=== PATIENT | female | born 1965 | race Caucasian/White ===

== ENCOUNTER 2018-06-15 18:19 | Emergency (ER) | payer OTHER ==
[2018-06-15 18:35] VITALS: BP 151/88
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
== END 2018-06-15 18:59 | disposition home or self-care (01) ==
LOC: UCCORT 18:19
DX: T22.131A Burn of first degree of right upper arm, initial encounter (principal); T31.0 Burns involving less than 10% of body surface; X13.1XXA Other contact with steam and other hot vapors, initial encounter; Y93.9 Activity, unspecified; Y92.9 Unspecified place or not applicable; Z88.5 Allergy status to narcotic agent; Z88.4 Allergy status to anesthetic agent
CPT/HCPCS: 16025; 99211; G0463

== ENCOUNTER 2019-12-22 17:48 | Emergency (ER) | payer OTHER ==
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
--- OUTSIDE RECORDS SUMMARY | 2019-12-22 19:21 | XMS REPORT ---
:1965 Author Organization [facility] Address [address] [place] [address] Care Team Providers Name Role Phone Shani Bowles Unavailable Unavailable PROBLEMS Type Condition ICD9-CM [id number] Onset Condition SNOMED Code Code Code Dates Status Problem Body mass index Z68.38 Active 288858278733897 (BMI) 38.0-38.9, adult Problem Other specified N92.5 Active 31965990 irregular menstruation Problem Family history Z80.49 Active 809783305 of malignant neoplasm of other genital organs ALLERGIES Substance Reaction Event Type Date Status adhesive tape rash Non Drug Allergy Aug, Active titanium itching and didn't heal Non Drug Allergy Aug, Active local anesthetic for knee itchy Non Drug Allergy Aug, Active surgery ENCOUNTERS Encounter Location Date Diagnosis [facility] [address], [place] [id number] [facility] [address], [place] [id number] [facility] [address] [place] [id number] (general) (routine) without abnormal findings Z01.419 ; Family history of malignant neoplasm of breast Z80.3 ; Other specified irregular menstruation N92.5 ; Encounter for screening mammogram for malignant neoplasm of breast Z12.31 ; Family history of malignant neoplasm of other genital organs Z80.49 ; Encounter for screening for malignant neoplasm of colon Z12.11 and Body mass index (BMI) 38.0-38.9, adult Z68.38 [facility] [address], Other specified irregular OBGYN [facility], menstruation N92.5 and [place] [id number] Family history of malignant neoplasm of other genital organs Z80.49 [facility] [address] Aug[facility] [place] [id number] (general) (routine) without abnormal findings Z01.419 ; Other specified irregular menstruation N92.5 ; Family history of malignant neoplasm of other genital organs Z80.49 and Body mass index (BMI) 38.0-38.9, adult Z68.38 [facility] [address], Encounter for [facility] gynecological examination [place] [id number] (general) (routine) with abnormal findings Z01.411 ; Encounter for screening mammogram for malignant neoplasm of breast Z12.31 ; Encounter for screening for malignant neoplasm of colon Z12.11 and Family history of malignant neoplasm of breast Z80.3 [facility] [address] Aug[facility] [place] [id number] (general) (routine) without abnormal findings Z01.419 ; Encounter for screening for malignant neoplasm of cervix Z12.4 and Encounter for screening mammogram for malignant neoplasm of breast Z12.31 [facility] [address], Incontinence 788.30 OBGYN [place], [place] [id number] IMMUNIZATIONS No Known Immunizations SOCIAL HISTORY Never Assessed REASON FOR REFERRAL FUNCTIONAL STATUS PLAN OF CARE Activity Details Follow Up Schedule 1 year annual w/US Reason: Pending Test SCREENING MAMMOGRAM BILATERAL VITAL SIGNS Height 66.5 in 2019-09-08 Weight 232 lbs 2019-09-08 BMI 36.88 kg/m2 2019-09-08 Blood pressure systolic 120 mm Hg 2019-09-08 Blood pressure diastolic 96 mm Hg 2019-09-08 MEDICATIONS Medication Instructions Dosage Frequency Start End Date Duration Status Date oxycodone 5 mg orally every 6 1 tab(s) 6h Active hours nutritional Active supplements baby asa 81mg 1 24h Active PROCEDURES Procedure Date Ordered Result Body Site ASSAY TEST FOR BLOOD, FECAL Sep 08, 2019 RESULTS Name Result Date Reference Range OCCULT BLOOD SCREEN 1-3 Occult Blood Screen 1-3 REASON FOR VISIT Annual, US F/U Insurance Providers [facility] Health Member Patient Patient Patient Patient Patient Subscriber Subscriber Subscriber Group Insurance Plan Plan Plan Plan ID Relationship Address Phone Name Date of ID Name Date of No Type Insurance Insurance Insurance Coverage to Subscriber Address Phone Name Dates [employer] [phone] [employer] self Nmio [id number] [place] [address] Lifetime [phone] Lifetime self Nimo [id number] Benefit [place] [address] [employer] [place] [employer] [id number] MEDICAL (GENERAL) HISTORY Type Description Date Medical History allergies Medical History arthritis in hips and knees Surgical History wisdom teeth Surgical History D&C Surgical History ankle plate installed 2010 Surgical History plate removed 2011 Surgical History torn miniscus repair on left knee 01/25 Surgical History Rt total hip replacement 08/20/19 Hospitalization History child
--- OUTSIDE RECORDS SUMMARY | 2019-12-22 19:21 | XMS REPORT ---
:1965 Author Name sound, rakel Care Team Providers Name Role Phone sound, ultra Unavailable Unavailable PROBLEMS Type Condition ICD9-CM [id number] Onset Condition SNOMED Code Code Code Dates Status Problem Body mass index Z68.38 Active 024239560012683 (BMI) 38.0-38.9, adult Problem Other specified N92.5 Active 79826223 irregular menstruation Problem Family history Z80.49 Active 009613844 of malignant neoplasm of other genital organs ALLERGIES No Information ENCOUNTERS Encounter Location Date Diagnosis [facility] [address], [place] [id number] [facility] [address], [place], [place] [id number] [facility] [address], Encounter for [facility], gynecological examination [place] [id number] (general) (routine) without abnormal findings Z01.419 ; Family history of malignant neoplasm of breast Z80.3 ; Other specified irregular menstruation N92.5 ; Encounter for screening mammogram for malignant neoplasm of breast Z12.31 ; Family history of malignant neoplasm of other genital organs Z80.49 ; Encounter for screening for malignant neoplasm of colon Z12.11 and Body mass index (BMI) 38.0-38.9, adult Z68.38 [facility] [address] Aug, Other specified irregular [facility], menstruation N92.5 and [place] [id number] Family history of malignant neoplasm of other genital organs Z80.49 [facility], Encounter for OBGYN [facility], gynecological examination [place] [id number] (general) (routine) without abnormal findings Z01.419 ; Other specified irregular menstruation N92.5 ; Family history of malignant neoplasm of other genital organs Z80.49 and Body mass index (BMI) 38.0-38.9, adult Z68.38 [facility] [address] 19 Aug[facility] [place] [id number] (general) (routine) with abnormal findings Z01.411 ; Encounter for screening mammogram for malignant neoplasm of breast Z12.31 ; Encounter for screening for malignant neoplasm of colon Z12.11 and Family history of malignant neoplasm of breast Z80.3 [facility] 103 13 Aug, [facility] [place] [id number] (general) (routine) without abnormal findings Z01.419 ; Encounter for screening for malignant neoplasm of cervix Z12.4 and Encounter for screening mammogram for malignant neoplasm of breast Z12.31 [facility] [address] Aug, Incontinence 788.[address] OBGYN [place] [id number] IMMUNIZATIONS No Known Immunizations SOCIAL HISTORY Never Assessed REASON FOR REFERRAL FUNCTIONAL STATUS PLAN OF CARE VITAL SIGNS MEDICATIONS Unknown Medications PROCEDURES Procedure Date Ordered Result Body Site TRANSVAGINAL US, NON-OB Sep 08, 2019 RESULTS Name Result Date Reference Range Ultrasound : Pelvis REASON FOR VISIT 1 Year US f/u and annual Insurance Providers [facility] Health Member Patient Patient Patient Patient Patient Subscriber Subscriber Subscriber Group Insurance Plan Plan Plan Plan ID Relationship Address Phone Name Date of ID Name Date of No Type Insurance Insurance Insurance Coverage to Subscriber Address Phone Name Dates Lifetime [phone] Lifetime self [place]imo [id number] Benefit [place] [address] [employer] [employer] [place] [id number] [id number] [employer] [phone] [employer] self [place] [id number] [place] [address] MEDICAL (GENERAL) HISTORY Type Description Date Medical History allergies Medical History arthritis in hips and knees Surgical History wisdom teeth Surgical History D&C Surgical History ankle plate installed 2010 Surgical History plate removed 2011 Surgical History torn miniscus repair on left knee 01/25 Surgical History Rt total hip replacement 08/20/19 Hospitalization History child
[2019-12-22 19:31] VITALS: BP 174/85
--- NOTE | 2019-12-22 20:05 | UC ---
Lower Extremity/Ankle HPI - HPI Summary HPI Summary: 54 yo female presents with LEFT ankle injury. She tells me that around noon today she was walking in her driveway and inverted her left ankle. Did not fall. Since that time has had pain and swelling to the lateral aspect of her left ankle. She is weight bearing with a mild limp. Nothing OTC for symptoms. Denies numbness or tingling - History of Current Complaint Chief Complaint: UCLowerExtremity Stated Complaint: LEFT ANKLE INJURY Time Seen by Provider: 12/22/19 19:22 Hx Obtained From: Patient Hx Last Menstrual Period: ~12/09/15 Onset/Duration: Sudden Onset Severity Initially: Moderate Severity Currently: Moderate Pain Intensity: 6 Pain Scale Used: 0-10 Numeric - Allergies/Home Medications Allergies/Adverse Reactions: Allergies Allergy/AdvReac Type Severity Reaction Status Date / Time codeine Allergy Severe Constipatio Verified 12/22/19 19:25 n local anesthesia Allergy See Comment Uncoded 12/22/19 19:25 PMH/Surg Hx/FS Hx/Imm Hx - Additional Past Medical History Additional PMH: None - Surgical History Surgical History: Yes Surgery Procedure, Year, and Place: Right Ankle Fracture, ~2008, [place]; D&C, [place] Teeth Extraction. Right hip. LEFT meniscus - Family History Known Family History: Positive: Hypertension - Social History Occupation: Employed Full-time Lives: With Family Alcohol Use: Rare Substance Use Type: None Smoking Status (MU): Never Smoked Tobacco - Immunization History Most Recent Influenza Vaccination: Not the 2015/2016 Season Most Recent Tetanus Shot: UTD Review of Systems All Other Systems Reviewed And Are Negative: No Constitutional: Positive: Negative Skin: Positive: Negative Respiratory: Positive: Negative Cardiovascular: Positive: Negative Neurovascular: Positive: Negative Musculoskeletal: Positive: Other: - LEft ankle injury Neurological/Mental Status: Positive: Negative Psychological: Positive: Negative Physical Exam - Summary Physical Exam Summary: GENERAL: NAD. WDWN. No pain distress. SKIN: No rashes, sores, lesions, or open wounds. CHEST: No accessory muscle use. Breathing comfortably and in no distress. CV: Pulses intact PT and DP. Cap refill <2seconds MSK: LEFT ANKLE: Lateral aspect with moderate edema and ttp about the distal fibula. FROM. Strength 5/5. Negative talar tilt. No increased laxity. Negative [place] test. NEURO: Alert. Sensations intact and symmetric B/L LEs PSYCH: Age appropriate behavior. Triage Information Reviewed: Yes Vital Signs: Initial Vital Signs Temp 97.5 F 12/22/19 19:26 Pulse 71 12/22/19 19:26 Resp 15 12/22/19 19:26 BP 174/85 12/22/19 19:26 Pulse Ox 100 12/22/19 19:26 NK [No Home Medications Reported] 06/15/18 [History Confirmed 12/22/19] Vital Signs Reviewed: Yes Diagnostics - Radiology Ankle XR Radiology Interpretation Completed By: ED Physician Summary of Radiographic Findings: Likely avulsion fx at distal fibula. Lower Extremity Course/Dx - Course Course Of Treatment: XR wet read positive for avulsion fx distal fibula. Pt placed in CAM boot and advised to RICE and f/u with Orthopedics. Will call with official report in the morning if there is a change - Differential Dx/Diagnosis Provider Diagnosis: Avulsion fracture of left ankle Discharge ED - Sign-Out/Discharge Documenting (check all that apply): Patient Departure All imaging exams completed and their final reports reviewed: No - Discharge Plan Condition: Stable Disposition: HOME Patient Education Materials: Avulsion Fracture (ED) Referrals: Yonatan Dickerson MD [Primary Care Provider] - Hiro Galeano MD [Medical Doctor] - As Soon As Possible Additional Instructions: If you develop a fever, shortness of breath, chest pain, new or worsening symptoms - please call your PCP or go to the ED immediately. Your blood pressure was high at todays visit. Please see your primary provider within 4 weeks for recheck and re-evaluation. 1) The X-ray of your ankle appears to have an avulsion fracture. The radiologist will read this in the morning and we will call you with any changes. 2) Please wear the walking boot as much as possible and call Orthopedics at the number below to schedule an appointment for a recheck - Billing Disposition and Condition Condition: STABLE Disposition: Home
--- NOTE | 2019-12-23 12:04 | UC ---
- Progress Note Progress Note: Final radiologist reading of left ankle x-ray from December 22, 2019 comes back as distal fibula evulsion fracture. Provider's interpretation same date is the same therefore there is no discrepancy. Course/Dx - Diagnoses Provider Diagnoses: Avulsion fracture of left ankle Discharge ED - Sign-Out/Discharge Documenting (check all that apply): Patient Departure All imaging exams completed and their final reports reviewed: No - Discharge Plan Condition: Stable Disposition: HOME Patient Education Materials: Avulsion Fracture (ED) Referrals: Hiro Galeano MD [Medical Doctor] - As Soon As Possible Yonatan Dickerson MD [Primary Care Provider] - Additional Instructions: If you develop a fever, shortness of breath, chest pain, new or worsening symptoms - please call your PCP or go to the ED immediately. Your blood pressure was high at todays visit. Please see your primary provider within 4 weeks for recheck and re-evaluation. 1) The X-ray of your ankle appears to have an avulsion fracture. The radiologist will read this in the morning and we will call you with any changes. 2) Please wear the walking boot as much as possible and call Orthopedics at the number below to schedule an appointment for a recheck - Billing Disposition and Condition Condition: STABLE Disposition: Home
== END 2019-12-22 20:22 | disposition home or self-care (01) ==
LOC: UCCORT 17:48
DX: S82.832A Other fracture of upper and lower end of left fibula, initial encounter for closed fracture (principal); Z88.4 Allergy status to anesthetic agent; Z88.5 Allergy status to narcotic agent; X50.9XXA Other and unspecified overexertion or strenuous movements or postures, initial encounter; Y93.01 Activity, walking, marching and hiking; Y92.89 Other specified places as the place of occurrence of the external cause
CPT/HCPCS: 99212; G0463